=== PATIENT | female | born 1975 | race Caucasian/White ===

== ENCOUNTER → 2017-11-14 | Outpatient (CLI) | payer OTHER ==
--- NOTE | 2017-11-14 18:27 | RAD ---
Double contrast barium enema study 11/14/2017 CLINICAL HISTORY: History of diverticulosis. Left lower quadrant pain. TECHNIQUE: A double contrast barium enema study was performed under fluoroscopic and radiographic control. The total fluoroscopic time for this study was 3.4 minutes. 10 digital spot radiographs were obtained. FINDINGS: An AP digital radiograph of the abdomen/pelvis was obtained as a audiology assistant. This demonstrates a nonobstructive bowel gas pattern. Calcification is seen within the pelvis consistent with a phlebolith. The osseous structures are grossly intact. The entire colon is distended with barium and air. Scattered diverticula are seen throughout the colon particularly involving the sigmoid colon. The appendix is distended with barium. It is within normal limits. No mucosal abnormality of the colon is seen. No annular constricting lesion is noted. No extrinsic mass effect upon the colon is seen. IMPRESSION: Colonic diverticulosis. Otherwise negative study. Electronically signed by: Isma Gonzalez MD (11/14/2017 6:23 PM) [facility]
== END | disposition home or self-care (01) ==
LOC: RAD 07:55
PROVIDERS: ATTEND Internal Medicine Gastroenterology
DX: K57.30 Diverticulosis of large intestine without perforation or abscess without bleeding (principal); I87.8 Other specified disorders of veins
CPT/HCPCS: 74270

== ENCOUNTER 2017-12-10 09:27 | Emergency (ER) | payer OTHER ==
[2017-12-10 10:05] LABS: BASO % 0 % (0-3); EOS % 0 % (0-3); HEMATOCRIT 45.7 % (36.0-47.0); HEMOGLOBIN 15.2 g/dL (12.0-15.5); LYMPH # 1.5 x10^3/uL (1.0-4.8); LYMPH % 14 % (24-48); MEAN CORPUSCULAR HEMOGLOBIN 29 pg (25-35); MEAN CORPUSCULAR HGB CONC 33 g/dL (31-37); MEAN CORPUSCULAR VOLUME 86 fL (79-100); MONO # 0.8 x10^3/uL (0.0-1.1); MONO % 8 % (0-9); NEUT # 8.6 x10^3uL (1.8-7.7); NEUT % 78 % (31-73); PLATELET COUNT 332 x10^3/uL (140-400); RED BLOOD COUNT 5.29 x10^6/uL (3.50-5.40); RED CELL DISTRIBUTION WIDTH 12.9 % (11.5-14.5)
[2017-12-10 10:07] LABS: BILIRUBIN,URINE NEG (NEG); CLARITY,URINE CLEAR; COLOR,URINE YELLOW; GLUCOSE,URINE NEG (NEG)
[2017-12-10 10:08] LABS: NITRITE,URINE NEG (NEG); UROBILINOGEN,URINE 0.2 mg/dL (0.2 mg/dL)
[2017-12-10 10:11] LABS: BACTERIA,URINE 0 /HPF (0-FEW); RBC,URINE OCC /HPF (0-2); WBC,URINE RARE /HPF (0-4)
[2017-12-10 10:12] LABS: SQUAMOUS EPITHELIAL CELL,UR FEW /LPF
[2017-12-10 10:17] LABS: ALBUMIN 4.2 g/dL (3.4-5.0); CALCIUM 8.9 mg/dL (8.5-10.1); CREATININE 0.9 mg/dL (0.6-1.0); POTASSIUM 3.6 mmol/L (3.5-5.1); TOTAL BILIRUBIN 0.9 mg/dL (0.2-1.0); TOTAL PROTEIN 8.3 g/dL (6.4-8.2)
[2017-12-10] MEDS ORDERED: IV NORMAL SALINE 1,000ML 1,000 ML IV ONE (10:30)
[2017-12-10] MEDS ORDERED: IOHEXOL 300 MG/ML 75 ML VIAL. IV ONE (10:30)
--- NOTE | 2017-12-10 10:53 | RAD ---
CT Abdomen and Pelvis With Intravenous Contrast: History: Consistent pelvic pain for one day. History of diverticulitis. Comparison: None. Technique: After administration of intravenous contrast, 75 mL Omnipaque-300, CT of the abdomen and pelvis was performed. Exposure: One or more of the following individualized dose reduction techniques were utilized for this examination: 1. Automated exposure control 2. Adjustment of the mA and/or kV according to patient size 3. Use of iterative reconstruction technique Findings: Evaluation of enteric structures may be limited by lack of oral contrast. Liver, spleen, pancreas, gallbladder, and bilateral adrenal glands are unremarkable. Bilateral kidneys enhance symmetrically. No bowel obstruction is identified. Inferior pole of left kidney demonstrates 1 mm nonobstructive nephrolith. Urinary bladder is unremarkable. Uterus demonstrates evidence of previous section. Colonic diverticulosis is noted, especially in sigmoid colon. There is inflammatory change and irregularity of the sigmoid colon, compatible with acute diverticulitis. No free air is identified. In the left hemipelvis adjacent to the uterus, there is ovoid cystic lesion which measures 3.3 cm in maximum axial dimension, favored to represent ovarian cyst over abscess. Scattered foci of dense material can be seen involving the colon, favored represent desiccated barium from recent barium enema. Impression: 1. Acute diverticulitis of the sigmoid colon. No perforation or definite abscess is identified. Electronically signed by: Mohamud Merchant MD (12/10/2017 10:50 AM) [place] [id number]
[2017-12-10] MEDS ORDERED: ONDA4TAB10 SL (11:11)
[2017-12-10] MEDS ORDERED: METR500T PO (11:11)
[2017-12-10] MEDS ORDERED: AMOX1TAB61 PO (11:11)
[2017-12-10] MEDS ORDERED: [UNRECOGNIZED DRUG - REMARK] (11:11)
[2017-12-10] MEDS ORDERED: HYDR-971 PO (11:11)
--- NOTE | 2017-12-10 11:11 | PHYS DOC ---
Past History Past Medical History: Other Additional Past Medical Histor: diverticulitis Smoking: Non-smoker Alcohol Use: None Drug Use: None Adult General Chief Complaint Chief Complaint: ABDOMINAL PAIN HPI HPI Patient is a 42 year old female with history of diverticulosis who presents with complaining of lower abdominal pain. And complaining of gradual onset of lower abdominal pain since yesterday as a constant and aching pain with nausea. Patient complaining of bloating abdomen and he states she took Dulcolax and had episodes of emesis to overnight. Patient states she usually gets episode of diverticulitis with left lower quadrant pain but this time her pain is suprapubic area. Patient denies fever, chills, urinary symptoms, vaginal bleeding or discharge, dizziness. Review of Systems Review of Systems Constitutional: Denies fever or chills [] Eyes: Denies change in visual acuity, redness, or eye pain [] HENT: Denies nasal congestion or sore throat [] Respiratory: Denies cough or shortness of breath [] Cardiovascular: No additional information not addressed in HPI [] GI: Reports abdominal pain, nausea, diarrhea [] : Denies dysuria or hematuria [] Musculoskeletal: Denies back pain or joint pain [] Integument: Denies rash or skin lesions [] Neurologic: Denies headache, focal weakness or sensory changes [] Endocrine: Denies polyuria or polydipsia [] All other systems were reviewed and found to be within normal limits, except as documented in this note. Current Medications Current Medications Current Medications Medications (Trade) Dose Ordered Sig/Yvonne Start Time Stop Time Status Last Admin Dose Admin Iohexol (Omnipaque 300 Mg/ml) 75 ml 1X ONCE 12/10/17 10:30 12/10/17 10:31 12/10/17 10:28 75 ML Sodium Chloride 1,000 ml @ 1,000 mls/hr 1X ONCE 12/10/17 10:30 12/10/17 11:29 Allergies Allergies Allergies Coded Allergies Type Severity Reaction Last Updated Verified azithromycin Allergy Unknown 12/10/17 Yes ceftriaxone Allergy Unknown 12/10/17 Yes ciprofloxacin Allergy Unknown 12/10/17 Yes Physical Exam Physical Exam Constitutional: Well developed, well nourished, mild distress, non-toxic appearance. [] HENT: Normocephalic, atraumatic, , oropharynx moist, no oral exudates, nose normal. [] Eyes: PERRLA, EOMI, conjunctiva normal, no discharge. [] Neck: Normal range of motion, no tenderness, supple, no stridor. [] Cardiovascular:Heart rate regular rhythm, no murmur [] Lungs & Thorax: Bilateral breath sounds clear to auscultation [] Abdomen: Bowel sounds normal, soft, suprapubic and right and left lower quadrant guarding, no tenderness, no masses, no pulsatile masses. [] Skin: Warm, dry, no erythema, no rash. [] Back: No tenderness, no CVA tenderness. [] Extremities: No tenderness, no cyanosis, no clubbing, ROM intact, no edema. [] Neurologic: Alert and oriented X 3, normal motor function, normal sensory function, no focal deficits noted. [] Psychologic: Affect normal, judgement normal, mood normal. [] Current Patient Data Lab Results Laboratory Tests Test 12/10/17 09:07 12/10/17 09:45 12/10/17 09:54 POC Urine HCG, Qualitative hcg negative (Negative) Urine Collection Type Void Urine Color Yellow Urine Clarity Clear Urine pH 6.0 Urine Specific Barker <=1.005 Urine Protein Neg (NEG-TRACE) Urine Glucose (UA) Neg mg/dL (NEG) Urine Ketones (Stick) Neg mg/dL (NEG) Urine Blood Trace (NEG) Urine Nitrite Neg (NEG) Urine Bilirubin Neg (NEG) Urine Urobilinogen Dipstick 0.2 mg/dL (0.2 mg/dL) Urine Leukocyte Esterase Neg (NEG) Urine RBC Occ /HPF (0-2) Urine WBC Rare /HPF (0-4) Urine Squamous Epithelial Cells Few /LPF Urine Bacteria 0 /HPF (0-FEW) White Blood Count 11.0 x10^3/uL (4.0-11.0) Red Blood Count 5.29 x10^6/uL (3.50-5.40) Hemoglobin 15.2 g/dL (12.0-15.5) Hematocrit 45.7 % (36.0-47.0) Mean Corpuscular Volume 86 fL (79-100) Mean Corpuscular Hemoglobin 29 pg (25-35) Mean Corpuscular Hemoglobin Concent 33 g/dL (31-37) Red Cell Distribution Width 12.9 % (11.5-14.5) Platelet Count 332 x10^3/uL (140-400) Neutrophils (%) (Auto) 78 % (31-73) H Lymphocytes (%) (Auto) 14 % (24-48) L Monocytes (%) (Auto) 8 % (0-9) Eosinophils (%) (Auto) 0 % (0-3) Basophils (%) (Auto) 0 % (0-3) Neutrophils # (Auto) 8.6 x10^3uL (1.8-7.7) H Lymphocytes # (Auto) 1.5 x10^3/uL (1.0-4.8) Monocytes # (Auto) 0.8 x10^3/uL (0.0-1.1) Eosinophils # (Auto) 0.0 x10^3/uL (0.0-0.7) Basophils # (Auto) 0.0 x10^3/uL (0.0-0.2) Sodium Level 136 mmol/L (136-145) Potassium Level 3.6 mmol/L (3.5-5.1) Chloride Level 99 mmol/L (98-107) Carbon Dioxide Level 27 mmol/L (21-32) Anion Gap 10 (6-14) Blood Urea Nitrogen 14 mg/dL (7-20) Creatinine 0.9 mg/dL (0.6-1.0) Estimated GFR (Cockcroft-Gault) 69.0 BUN/Creatinine Ratio 16 (6-20) Glucose Level 83 mg/dL (70-99) Calcium Level 8.9 mg/dL (8.5-10.1) Total Bilirubin 0.9 mg/dL (0.2-1.0) Aspartate Amino Transferase (AST) 15 U/L (15-37) Alanine Aminotransferase (ALT) 27 U/L (14-59) Alkaline Phosphatase 96 U/L (46-116) Total Protein 8.3 g/dL (6.4-8.2) H Albumin 4.2 g/dL (3.4-5.0) Albumin/Globulin Ratio 1.0 (1.0-1.7) Lipase 107 U/L (73-393) EKG EKG [] Radiology/Procedures Radiology/Procedures [address] [id number] IMAGING REPORT Signed PATIENT: WAYNE ULLOA ACCOUNT: [id number] : 1975 LOCATION: ER AGE: 42 SEX: F EXAM STATUS: REG ER ORD. PHYSICIAN: JYOTI CRUZ MD REASON: lower abdominal pain, history of diverticulitis PROCEDURE: CT ABD PELV W/ IV CONTRST ONLY CT Abdomen and Pelvis With Intravenous Contrast: History: Consistent pelvic pain for one day. History of diverticulitis. Comparison: None. Technique: After administration of intravenous contrast, 75 mL Omnipaque-300, CT of the abdomen and pelvis was performed. Exposure: One or more of the following individualized dose reduction techniques were utilized for this examination: 1. Automated exposure control 2. Adjustment of the mA and/or kV according to patient size 3. Use of iterative reconstruction technique Findings: Evaluation of enteric structures may be limited by lack of oral contrast. Liver, spleen, pancreas, gallbladder, and bilateral adrenal glands are unremarkable. Bilateral kidneys enhance symmetrically. No bowel obstruction is identified. Inferior pole of left kidney demonstrates 1 mm nonobstructive nephrolith. Urinary bladder is unremarkable. Uterus demonstrates evidence of previous section. Colonic diverticulosis is noted, especially in sigmoid colon. There is inflammatory change and irregularity of the sigmoid colon, compatible with acute diverticulitis. No free air is identified. In the left hemipelvis adjacent to the uterus, there is ovoid cystic lesion which measures 3.3 cm in maximum axial dimension, favored to represent ovarian cyst over abscess. Scattered foci of dense material can be seen involving the colon, favored represent desiccated barium from recent barium enema. Impression: 1. Acute diverticulitis of the sigmoid colon. No perforation or definite abscess is identified. Electronically signed by: Mohamud Joseph MD (12/10/2017 10:50 AM) [facility] DICTATED AND SIGNED BY: MOHAMUD JOSEPH MD DATE: 12/10/17 1043 CC: JYOTI CRUZ MD; JAYNA BETANCUR MD ~ Course & Med Decision Making Course & Med Decision Making Pertinent Labs and Imaging studies reviewed. (See chart for details) Evaluation of patient in ER showed 42-year-old female patient with history of diverticulitis and complaining of lower abdominal pain since yesterday with nausea and diarrhea after taking laxative. Patient had no abdominal guarding. IV fluid of pain medication at arrival to ER but later on agreed with having medication. Labs was unremarkable. CT showed acute diverticulitis. Patient wanted to try outpatient treatment. Patient is allergic to several antibiotics and states she usually treated with Augmentin for diverticulitis. Prescription for Flagyl and Augmentin was given and patient instructed to take liquid diet and follow with her specialist in one or 2 days. She instructed to ER if develops fever, severe abdominal pain, bloody stool or generalized weakness. Dragon Disclaimer Dragon Disclaimer This electronic medical record was generated, in whole or in part, using a voice recognition dictation system. Departure Departure: Impression: Primary Impression: Acute diverticulitis Disposition: HOME, SELF-CARE (@1108) Condition: IMPROVED Referrals: JAYNA BETANCUR MD (PCP) Patient Instructions: Diverticulitis Additional Instructions: Drink plenty of liquids Follow-up with your primary care physician in 3-5 days Return to ER if not getting better Follow-up with your GI specialist in one or 2 days Take liquid diet for 2 days Scripts Hydrocodone Bit/Acetaminophen (NORCO 5-325 TABLET) 1 Each Tablet 1 TAB PO PRN Q6HRS PRN for PAIN, #10 TAB 0 Refills Prov: JYOTI CRUZ MD 12/10/17 Ondansetron (ZOFRAN ODT) 4 Mg Tab.rapdis 1 TAB SL Q8HRS, #15 TAB Prov: JYOTI CRUZ MD 12/10/17 Amoxicillin/Potassium Clav (AUGMENTIN 875-125 TABLET) 1 Each Tablet 1 TAB PO BID, #20 TAB Prov: JYOTI CRUZ MD 12/10/17 Metronidazole (FLAGYL) 500 Mg Tablet 500 MG PO Q8HRS, #30 TAB Prov: JYOTI CRUZ MD 12/10/17 JYOTI CRUZ MD Dec 10, 2017 11:11
[2017-12-10] MEDS ORDERED: KETOROLAC 30 MG/ML VIAL. IV ONE (11:15)
[2017-12-10 11:23] VITALS: BP 107/70
== END 2017-12-10 11:25 | disposition home or self-care (01) ==
LOC: ER 09:27
DX: K57.32 Diverticulitis of large intestine without perforation or abscess without bleeding (principal); Z88.1 Allergy status to other antibiotic agents; Z88.8 Allergy status to other drugs, medicaments and biological substances
CPT/HCPCS: 36415; 74177; 80053; 81001; 81025; 83690; 85025; 96361; 96374; 99285; J1885; Q9967; J7030

== ENCOUNTER 2018-04-17 14:36 | Emergency (ER) | payer OTHER ==
[~2018-04-17 14:36] MED LIST: AMOX1TAB61 PO; HYDR-3165 PO; METR500T PO; ONDA4TAB10 SL; [UNRECOGNIZED DRUG - REMARK]
[2018-04-17 14:47] VITALS: BP 113/61
[2018-04-17] MEDS ORDERED: IV NORMAL SALINE 1,000ML 1,000 ML IV ONE (15:00)
--- NOTE | 2018-04-17 15:06 | PHYS DOC ---
Past History Past Medical History: Diverticulitis Additional Past Medical Histor: diverticulitis Past Surgical History: Smoking: Non-smoker Alcohol Use: None Drug Use: None Adult General Chief Complaint Chief Complaint: ABDOMINAL PAIN HPI HPI 43-year-old female presents with left lower quadrant abdominal pain for last 2 days. The patient had nausea and vomiting yesterday and just thought she was coming down with a viral illness. Today she has left lower quadrant pain which feels similar to her previous diverticulitis. She has had multiple episodes of diverticulitis in the past. Her most recent was 4-5 months ago. Patient has not had any blood in her diarrhea. She also has had an outpatient ultrasound showing complex cysts on the right and left ovaries. This was done since at [facility]. Follow-up CT was recommended, but not done yet. Patient denies fever or chills. She denies dysuria or increased urinary frequency. Review of Systems Review of Systems Constitutional: Denies fever or chills [] Eyes: Denies change in visual acuity, redness, or eye pain [] HENT: Denies nasal congestion or sore throat [] Respiratory: Denies cough or shortness of breath [] Cardiovascular: No additional information not addressed in HPI [] GI: Left lower quadrant abdominal pain, nausea, vomiting, diarrhea.[] : Denies dysuria or hematuria [] Musculoskeletal: Denies back pain or joint pain [] Integument: Denies rash or skin lesions [] Neurologic: Denies headache, focal weakness or sensory changes [] Endocrine: Denies polyuria or polydipsia [] All other systems were reviewed and found to be within normal limits, except as documented in this note. Current Medications Current Medications Current Medications Medications (Trade) Dose Ordered Sig/Yvonne Start Time Stop Time Status Last Admin Dose Admin Sodium Chloride 1,000 ml @ 1,000 mls/hr 1X ONCE 04/17/18 15:00 04/17/18 15:59 Allergies Allergies Allergies Coded Allergies Type Severity Reaction Last Updated Verified azithromycin Allergy Unknown 12/10/17 Yes ceftriaxone Allergy Unknown 12/10/17 Yes ciprofloxacin Allergy Unknown 12/10/17 Yes Physical Exam Physical Exam Constitutional: Well developed, well nourished, no acute distress, non-toxic appearance. [] HENT: Normocephalic, atraumatic, bilateral external ears normal, oropharynx moist, no oral exudates, nose normal. [] Eyes: PERRLA, EOMI, conjunctiva normal, no discharge. [] Neck: Normal range of motion, no tenderness, supple, no stridor. [] Cardiovascular: Heart rate regular rhythm, no murmur [] Lungs & Thorax: Bilateral breath sounds clear to auscultation [] Abdomen: Left lower quadrant and suprapubic tenderness with guarding. No rebound.[] Skin: Warm, dry, no erythema, no rash. [] Back: No tenderness, no CVA tenderness. [] Extremities: No tenderness, no cyanosis, no clubbing, ROM intact, no edema. [] Neurologic: Alert and oriented X 3, normal motor function, normal sensory function, no focal deficits noted. [] Psychologic: Affect normal, judgement normal, mood normal. [] Current Patient Data Vital Signs Vital Signs Date Time Temp Pulse Resp B/P (MAP) Pulse Ox O2 Delivery O2 Flow Rate FiO2 04/17/18 14:47 98.5 104 20 98 Room Air EKG EKG [] Radiology/Procedures Radiology/Procedures [] Impressions: CT of the abdomen and pelvis with contrast, 04/17/2018: HISTORY: Left lower quadrant pain, diverticulitis Multidetector CT imaging was performed following an IV bolus injection of iodinated contrast material. No oral contrast material was administered for this exam. Comparison is made to a study from 12/10/2017. No hepatic abnormality is seen. The gallbladder is unremarkable. No pancreatic abnormality is seen. The spleen is of normal size. There was a delay in the injection process and therefore excreted contrast is present in the renal collecting systems, ureters and bladder. The kidneys show no evidence of obstruction. The abdominal aorta is unremarkable. No abdominal or pelvic adenopathy is seen. The uterus is deviated to the right of midline. Small cystic structures in the right adnexa are probably small ovarian cysts Colonic diverticula are present, most numerous in the distal descending and sigmoid colon. There is mild streaky increased density in the paracolic fat at the proximal sigmoid level compatible with inflammation. Just distal to this level the sigmoid is poorly defined and cannot be clearly from the left ovary. The sigmoid lumen is not outlined by fluid and is poorly defined at this level. There are punctate and linear radiopacities related to the sigmoid colon at this level which have changed configuration since the previous study. These are best seen on coronal images 27-31. This may be represent old barium in diverticula or an old walled off diverticular perforation. No discrete abscess is identified at this time. The bowel loops are not dilated. No free air or free fluid is evident in the abdomen or pelvis. IMPRESSION: Acute sigmoid diverticulitis as described above. RS Compliance Statement: One or more of the following individualized dose reduction techniques were utilized for this examination: 1. Automated exposure control 2. Adjustment of the mA and/or kV according to patient size 3. Use of iterative reconstruction technique Electronically signed by: Mark Howard MD (04/17/2018 3:56 PM) [facility] Course & Med Decision Making Course & Med Decision Making Pertinent Labs and Imaging studies reviewed. (See chart for details) The CT of the abdomen and pelvis does show acute sigmoid diverticulitis. There is nonspecific mention of significant ovarian cysts. See official read for more details. The patient has had intolerance to ciprofloxacin and metronidazole in the past. I will treat her with Augmentin 3 times a day for 10 days. We will give her first dose in the ED. [] Dragon Disclaimer Dragon Disclaimer This electronic medical record was generated, in whole or in part, using a voice recognition dictation system. Departure Departure: Impression: Primary Impression: Sigmoid diverticulitis Disposition: 01 HOME, SELF-CARE Condition: STABLE Referrals: JAYNA BETANCUR MD (PCP) Patient Instructions: Diverticulitis, [id number] Scripts Amoxicillin/Potassium Clav (AUGMENTIN 875-125 TABLET) 1 Each Tablet 1 TAB PO TID for diverticulitis for 10 Days, #30 TAB Prov: WILIAN HERMAN DO 04/17/18 Hydrocodone Bit/Acetaminophen (NORCO 5-325 TABLET) 1 Each Tablet 1 TAB PO PRN Q6HRS PRN for PAIN, #14 TAB 0 Refills Prov: WILIAN HERMAN DO 04/17/18 WILIAN HERMAN DO Apr 17, 2018 15:06
[2018-04-17 15:28] LABS: BASO % 0 % (0-3); EOS % 1 % (0-3); HEMOGLOBIN 14.6 g/dL (12.0-15.5); LYMPH # 0.5 x10^3/uL (1.0-4.8); LYMPH % 7 % (24-48); MEAN CORPUSCULAR HEMOGLOBIN 29 pg (25-35); MEAN CORPUSCULAR HGB CONC 33 g/dL (31-37); MEAN CORPUSCULAR VOLUME 86 fL (79-100); MONO # 0.4 x10^3/uL (0.0-1.1); MONO % 5 % (0-9); NEUT # 6.6 x10^3uL (1.8-7.7); NEUT % 88 % (31-73); PLATELET COUNT 252 x10^3/uL (140-400); RED BLOOD COUNT 5.11 x10^6/uL (3.50-5.40); RED CELL DISTRIBUTION WIDTH 13.1 % (11.5-14.5); WHITE BLOOD COUNT 7.6 x10^3/uL (4.0-11.0)
[2018-04-17] MEDS ORDERED: ONDANSETRON PF 4 MG/2 ML VIAL. IV ONE (15:30)
[2018-04-17] MEDS ORDERED: IOHEXOL 300 MG/ML 75 ML VIAL. IV ONE (15:30)
[2018-04-17 15:38] LABS: ALBUMIN 3.9 g/dL (3.4-5.0); ALBUMIN/GLOBULIN RATIO 1.1 (1.0-1.7); CALCIUM 8.5 mg/dL (8.5-10.1); CREATININE 0.8 mg/dL (0.6-1.0); GFR 78.7; POTASSIUM 3.6 mmol/L (3.5-5.1); TOTAL BILIRUBIN 0.3 mg/dL (0.2-1.0); TOTAL PROTEIN 7.6 g/dL (6.4-8.2)
[2018-04-17 15:54] LABS: BACTERIA,URINE FEW /HPF (0-FEW); BILIRUBIN,URINE NEG (NEG); CLARITY,URINE HAZY; COLOR,URINE AMBER; GLUCOSE,URINE NEG (NEG); NITRITE,URINE NEG (NEG); SQUAMOUS EPITHELIAL CELL,UR MOD /LPF; UROBILINOGEN,URINE 1 mg/dL (0.2 mg/dL)
[2018-04-17 15:55] LABS: AMORPHOUS SEDIMENT,UR PRESENT /HPF
--- NOTE | 2018-04-17 16:01 | RAD ---
CT of the abdomen and pelvis with contrast, 04/17/2018: HISTORY: Left lower quadrant pain, diverticulitis Multidetector CT imaging was performed following an IV bolus injection of iodinated contrast material. No oral contrast material was administered for this exam. Comparison is made to a study from 12/10/2017. No hepatic abnormality is seen. The gallbladder is unremarkable. No pancreatic abnormality is seen. The spleen is of normal size. There was a delay in the injection process and therefore excreted contrast is present in the renal collecting systems, ureters and bladder. The kidneys show no evidence of obstruction. The abdominal aorta is unremarkable. No abdominal or pelvic adenopathy is seen. The uterus is deviated to the right of midline. Small cystic structures in the right adnexa are probably small ovarian cysts Colonic diverticula are present, most numerous in the distal descending and sigmoid colon. There is mild streaky increased density in the paracolic fat at the proximal sigmoid level compatible with inflammation. Just distal to this level the sigmoid is poorly defined and cannot be clearly from the left ovary. The sigmoid lumen is not outlined by fluid and is poorly defined at this level. There are punctate and linear radiopacities related to the sigmoid colon at this level which have changed configuration since the previous study. These are best seen on coronal images 27-31. This may be represent old barium in diverticula or an old walled off diverticular perforation. No discrete abscess is identified at this time. The bowel loops are not dilated. No free air or free fluid is evident in the abdomen or pelvis. IMPRESSION: Acute sigmoid diverticulitis as described above. PQRS Compliance Statement: One or more of the following individualized dose reduction techniques were utilized for this examination: 1. Automated exposure control 2. Adjustment of the mA and/or kV according to patient size 3. Use of iterative reconstruction technique Electronically signed by: Mark Howard MD (04/17/2018 3:56 PM) [facility]
[2018-04-17] MEDS ORDERED: AMOX1TAB61 PO (16:24)
[2018-04-17] MEDS ORDERED: HYDR-3165 PO (16:24)
[2018-04-17] MEDS ORDERED: MORPHINE SULFATE 2 MG/ML DISP.SYRIN. IM ONE (16:45)
[2018-04-17] MEDS ORDERED: AMOXICILLIN/K CLAV 875/125MG TABLET. PO ONE (16:45)
== END 2018-04-17 16:41 | disposition home or self-care (01) ==
LOC: ER 14:36
DX: K57.32 Diverticulitis of large intestine without perforation or abscess without bleeding (principal); R11.2 Nausea with vomiting, unspecified; R19.7 Diarrhea, unspecified; Z98.890 Other specified postprocedural states; Z88.1 Allergy status to other antibiotic agents; Z88.8 Allergy status to other drugs, medicaments and biological substances
CPT/HCPCS: 36415; 74177; 80053; 81001; 85025; 96361; 96372; 96374; 99284; J2270; J2405; Q9967; J7030